=== PATIENT | female | born 1995 | race Caucasian/White ===

== ENCOUNTER 2019-05-22 17:20 | Outpatient (REF) | payer OTHER, SELFPAY ==
[2019-05-25 14:53] LABS: Chlamydia Result Negative; GC Result Negative; Specimen Description CERVIX
== END 2019-05-22 17:40 ==
LOC: LBN 17:20
PROVIDERS: PCP Internal Medicine; Visit Provider Obstetrics & Gynecology Gynecology
DX: Z11.3 Encounter for screening for infections with a predominantly sexual mode of transmission (principal)
CPT/HCPCS: 87491; 87591

== ENCOUNTER 2025-09-03 18:08 | Outpatient (REF) | payer OTHER, SELFPAY | END 2025-09-03 18:09 | disposition home or self-care (01) | LOC: LBN 18:08 | PROVIDERS: PCP Internal Medicine; Visit Provider Nurse Practitioner Family | DX: K04.7 Periapical abscess without sinus (principal) | CPT/HCPCS: 87070; 87205 ==